=== PATIENT | male | born 1975 | race Two or more races ===

== ENCOUNTER 2022-10-23 05:50 | Day surgery (SDC) | payer OTHER ==
[~2022-10-23 05:50] MED LIST: TICOR PO; TOPROL XL100 M1 PO; VALSARTAN-HCTZ1 EAC3 PO
[2022-10-23] MEDS ORDERED: PERCOCET 5-3251 EACH PO (09:08)
[2022-10-23] MEDS ORDERED: RECTICARE30 GM TOP (09:08)
== END 2022-10-23 13:35 | disposition home or self-care (01) ==
LOC: CIR.AMB 05:50
PROVIDERS: ATTEND Surgery
DX: K62.5 Hemorrhage of anus and rectum (principal); K60.2 Anal fissure, unspecified; K60.3 Anal fistula; K62.4 Stenosis of anus and rectum; K64.8 Other hemorrhoids; Z20.822 Contact with and (suspected) exposure to COVID-19